=== PATIENT | female | born 1960 | race African-American/Black ===

== ENCOUNTER → 2018-02-14 12:26 | Outpatient (CLI) | payer OTHER, MEDICARE, SELFPAY ==
[2018-02-14 12:32] LABS: RBC Urine None Seen (0-5/HPF)
[2018-02-14 12:55] LABS: Appearance Urine UA CLEAR; Bilirubin Urine UA NEGATIVE (NEGATIVE); Color Urine UA YELLOW; Glucose Urine UA NEGATIVE (Normal); Ketones Urine UA NEGATIVE (NEGATIVE); Leukocyte Esterase Urine UA TRACE (NEGATIVE); Nitrite Urine UA Negative (Negative); Occult Blood Urine UA NEGATIVE (Negative); Protein Urine UA TRACE (Negative); pH Urine UA 6.5 (4.5-8.0)
[2018-02-14 13:01] LABS: Add Manual Diff / Slide Review NO; Basophils Percent Auto 0.6 % (0-2); Eosinophils Percent Auto 1.5 % (2-4); Hematocrit 33.2 % (36-46); Hemoglobin 10.9 g/dL (12.0-16.0); Lymphocytes Percent Auto 11.6 % (25-40); Mean Corpuscular HGB Conc 32.9 % (30-36); Mean Corpuscular Hemoglobin 27.4 PG (26-34); Mean Corpuscular Volume 83.3 fL (80-100); Monocytes Percent Auto 15.2 % (3-14); Neutrophils Absolute Auto 10300 /uL (3000-5900); Neutrophils Percent Auto 71.1 % (50-75); Platelet Count 560 X10^3/uL (150-400); Red Blood Cell Count 3.98 X10^6/uL (4.0-5.2); Red Cell Distribution Width 13.2 % (11.6-14.8); White Blood Cell Count 14.5 X10^3/uL (4.5-11.0)
[2018-02-14 13:13] LABS: Amorphous Sediment Urine 1+; Bacteria Urine Moderate (10-30); Culture Indicated Urine Specimen Cultured; Mucus Urine 1+ (Negative); Squamous Epithelial Cell Urine 1-5 /HPF; WBC Urine 5-10/HPF (0-5/HPF)
[2018-02-14 13:21] LABS: Alanine Aminotransferase 107 IU/L (9-52); Albumin 4.2 g/dL (3.5-5.0); Albumin Globulin Ratio 0.9 (1.0-2.8); Alkaline Phosphatase 119 U/L (38-126); Amylase 47 U/L (30-110); Aspartate Aminotransferase 53 IU/L (14-36); BUN Creatinine Ratio 14.3 (6-22); Bilirubin Total 1.1 mg/dL (0.2-1.3); Blood Urea Nitrogen 10 mg/dL (7-17); Calcium 11.1 mg/dL (8.4-10.2); Carbon Dioxide 28 mmol/L (22-32); Chloride 97 mmol/L (98-107); Estimated Glomerular Filt Rate > 60.0 mL/min (>60); Globulin 4.5 g/dL (1.7-4.1); Glucose 105 mg/dL (70-100); HEMOLYSIS < 15 (0-50); Lipase 22 U/L (23-300); Potassium 3.8 mmol/L (3.4-5.1); Sodium 136 mmol/L (137-145); Total Protein 8.7 g/dL (6.3-8.2)
[2018-02-14 14:36] LABS: Cholesterol 141 mg/dL (140-199); HDL Cholesterol 42 mg/dL (40-60); LDL Cholesterol Calculated 81 mg/dL (<100); Triglycerides 89 mg/dL (35-150)
[2018-02-14 15:08] LABS: Thyroid Stimulating Hormone 1.27 uIU/mL (0.47-4.68)
== END ==
PROVIDERS: PCP Family Medicine; Visit Provider Family Medicine
DX: G89.29 Other chronic pain (principal); M54.6 Pain in thoracic spine; E78.5 Hyperlipidemia, unspecified; I10 Essential (primary) hypertension
CPT/HCPCS: 36415; 80053; 80061; 81001; 82150; 83013; 83690; 84443; 85025; 87086

== ENCOUNTER → 2018-02-19 15:35 | Outpatient (CLI) | payer OTHER, MEDICARE, SELFPAY ==
[2018-02-22 09:14] LABS: Hepatitis A Antibody IgM NONREACTIVE; Hepatitis Acute Panel Interp 0.06; Hepatitis B Core Antibody IgM NONREACTIVE; Hepatitis B Surface Antigen NONREACTIVE; Hepatitis C Antibody NONREACTIVE
== END ==
PROVIDERS: PCP Family Medicine; Visit Provider Family Medicine
DX: R94.5 Abnormal results of liver function studies (principal)
CPT/HCPCS: 36415; 80074

== ENCOUNTER → 2018-03-12 13:17 | Outpatient (CLI) | payer OTHER, MEDICARE, SELFPAY ==
--- NOTE | 2018-03-12 13:19 | DI.US.S_ITS ---
PROCEDURE: US ABDOMEN COMPLETE INDICATIONS: Elevated LFT's TECHNIQUE: Real-time scanning was performed of the abdominal and retroperitoneal organs, with image documentation. COMPARISON: [facility], CT, ABDOMEN WITH CONTRAST, 03/15/2016, 9:30. FINDINGS: Liver: Liver is prominent in size and homogeneous in echotexture. Gallbladder: No findings of gallstones or sludge are seen. The gallbladder wall is not thickened, measuring 3 mm or less. No specific pericholecystic fluid is seen. The sonographic Welch sign is negative. Biliary ducts: Intrahepatic bile ducts are non-dilated. Extrahepatic bile duct caliber measures 6 mm. Normal is 6-7 mm or less in diameter, or 10 mm or less post-cholecystectomy. Pancreas: Visualized portions of the pancreas are sonographically normal. Spleen: Spleen is normal in size and homogeneous in echotexture. Kidneys: Kidneys are normal in size and echotexture. Right kidney measures 13 cm long; left kidney measures 14.8 cm long. No hydronephrosis or nephrolithiasis. No solid masses. Aorta: There is a proximal abdominal aortic aneurysm seen that measures up to 2.7 cm AP, with the transverse extent of 5.2 cm. There is a stent seen. Iliacs: Proximal common iliac arteries are normal in caliber at less than 2.5 cm. IVC: Intrahepatic inferior vena cava is patent. Miscellaneous: No free abdominal fluid. IMPRESSION: Abdominal aortic aneurysm, with stent graft. Prominent liver size. Dictated by: Laurent Newby M.D. on 03/12/2018 at 15:14 Approved by: Laurent Newby M.D. on 03/12/2018 at 15:16
== END ==
PROVIDERS: PCP Family Medicine; Visit Provider Family Medicine
DX: I71.4 Abdominal aortic aneurysm, without rupture (principal); R94.5 Abnormal results of liver function studies
CPT/HCPCS: 76700

== ENCOUNTER → 2018-07-03 10:56 | Outpatient (CLI) | payer OTHER, MEDICARE, SELFPAY ==
[2018-07-03 11:38] LABS: Add Manual Diff / Slide Review NO; Basophils Percent Auto 0.7 % (0-2); Eosinophils Percent Auto 2.1 % (2-4); Hematocrit 43.4 % (36-46); Hemoglobin 14.1 g/dL (12.0-16.0); Lymphocytes Percent Auto 20.3 % (25-40); Mean Corpuscular HGB Conc 32.4 % (30-36); Mean Corpuscular Hemoglobin 26.6 PG (26-34); Mean Corpuscular Volume 82.1 fL (80-100); Neutrophils Absolute Auto 6500 /uL (1500-7000); Neutrophils Percent Auto 63.9 % (50-75); Platelet Count 209 X10^3/uL (150-400); Red Blood Cell Count 5.28 X10^6/uL (4.0-5.2); Red Cell Distribution Width 16.1 % (11.6-14.8); White Blood Cell Count 10.2 X10^3/uL (4.5-11.0)
== END ==
PROVIDERS: PCP Family Medicine; Visit Provider Family Medicine
DX: D64.9 Anemia, unspecified (principal)
CPT/HCPCS: 36415; 85025

== ENCOUNTER → 2018-12-31 14:24 | Outpatient (CLI) | payer OTHER, MEDICARE, SELFPAY | PROVIDERS: PCP Family Medicine; Visit Provider Family Medicine | DX: N89.8 Other specified noninflammatory disorders of vagina (principal) | CPT/HCPCS: 87210 ==

== ENCOUNTER → 2019-02-14 14:39 | Outpatient (CLI) | payer OTHER, MEDICARE, SELFPAY ==
[2019-02-14 15:08] LABS: Add Manual Diff / Slide Review NO; Basophils Absolute Auto 100 /uL (0-100); Basophils Percent Auto 0.9 % (0-2); Eosinophils Absolute Auto 200 /uL (0-450); Eosinophils Percent Auto 1.9 % (2-4); Hematocrit 41.8 % (36-46); Lymphocytes Absolute Auto 2400 /uL (1100-4500); Lymphocytes Percent Auto 22.8 % (25-40); Mean Corpuscular HGB Conc 33.6 % (30-36); Mean Corpuscular Hemoglobin 28.1 PG (26-34); Mean Corpuscular Volume 83.6 fL (80-100); Monocytes Absolute Auto 1200 /uL (0-900); Monocytes Percent Auto 10.7 % (3-14); Neutrophils Absolute Auto 6800 /uL (1500-7000); Neutrophils Percent Auto 63.7 % (50-75); Platelet Count 189 X10^3/uL (150-400); Red Blood Cell Count 4.99 X10^6/uL (4.0-5.2); Red Cell Distribution Width 14.7 % (11.6-14.8); White Blood Cell Count 10.7 X10^3/uL (4.5-11.0)
[2019-02-14 15:21] LABS: Alanine Aminotransferase 19 IU/L (9-52); Albumin 4.7 g/dL (3.5-5.0); Albumin Globulin Ratio 1.3 (1.0-2.8); Alkaline Phosphatase 71 U/L (38-126); Aspartate Aminotransferase 32 IU/L (14-36); Bilirubin Total 0.9 mg/dL (0.2-1.3); Blood Urea Nitrogen 14 mg/dL (7-17); Carbon Dioxide 24 mmol/L (22-32); Chloride 105 mmol/L (98-107); Cholesterol 127 mg/dL (140-199); Estimated Glomerular Filt Rate > 60.0 mL/min (>60); Globulin 3.5 g/dL (1.7-4.1); Glucose 81 mg/dL (70-100); HDL Cholesterol 58 mg/dL (40-60); LDL Cholesterol Calculated 55 mg/dL (<100); Sodium 141 mmol/L (137-145); Total Protein 8.2 g/dL (6.3-8.2); Triglycerides 68 mg/dL (35-150)
[2019-02-14 15:22] LABS: HEMOLYSIS 95 (0-50); Potassium 5.4 mmol/L (3.4-5.1)
[2019-02-14 15:48] LABS: Thyroid Stimulating Hormone 0.84 uIU/mL (0.47-4.68)
[2019-02-14 16:03] LABS: Appearance Urine UA CLEAR; Bilirubin Urine UA NEGATIVE (NEGATIVE); Color Urine UA YELLOW; Glucose Urine UA NEGATIVE (Negative); Ketones Urine UA NEGATIVE (NEGATIVE); Leukocyte Esterase Urine UA NEGATIVE (NEGATIVE); Nitrite Urine UA NEGATIVE (Negative); Occult Blood Urine UA NEGATIVE (Negative); Protein Urine UA NEGATIVE (Negative); Specific Gravity Urine UA 1.015 (1.000-1.035); Urobilinogen Urine UA 0.2 E.U./dL (0.2)
== END ==
PROVIDERS: PCP Family Medicine; Visit Provider Family Medicine
DX: E66.9 Obesity, unspecified (principal); R74.8 Abnormal levels of other serum enzymes; Z13.220 Encounter for screening for lipoid disorders; Z13.29 Encounter for screening for other suspected endocrine disorder
CPT/HCPCS: 36415; 80053; 80061; 81003; 84443; 85025

== ENCOUNTER → 2019-04-16 13:17 | Outpatient (CLI) | payer OTHER, MEDICARE, SELFPAY ==
--- NOTE | 2019-04-16 | DI.US.S_ITS ---
ULTRASOUND OF LEFT BREAST: 04/16/2019 CLINICAL: Diffuse left breast pain. Comparison is made to exams dated: 04/16/2019 mammogram, 04/01/2015 mammogram, and 03/08/2005 mammogram - [facility]. Color flow and real-time ultrasound of the left breast were performed on the areas of interest. Yap scale images of the real-time examination were reviewed. There is an incidentally noted normal appearing lymph node in the left breast at 2 o'clock. IMPRESSION: BENIGN There is no sonographic evidence of malignancy. There is no mammographic or sonographic abnormality seen in the left breast to correspond with the pain in the upper outer quadrant, however, clinical followup is recommended. There is no mammographic or sonographic abnormality seen in the left breast to correspond with the intermittent nipple pruritis in the sub-areolar depth, however, paget's disease of the breast cannot be excluded, and surgical consult is recommended. A 1 year screening mammogram is recommended. This exam was interpreted at Station ID: [id number]. Electronically Signed By: Sheila cho/:04/16/2019 15:42:04 letter sent: Clinical Evaluation Ultrasound BI-RADS: 2 Benign
--- NOTE | 2019-04-16 13:22 | DI.MG.S_ITS ---
BILATERAL DIGITAL DIAGNOSTIC MAMMOGRAM 3D/2D: 04/16/2019 CLINICAL: Fibrocystic breast changes. Left breast pain. Left itchy nipple. Comparison is made to exams dated: 04/01/2015 mammogram and 03/08/2005 mammogram - [facility]. The tissue of both breasts is predominantly fatty. No significant masses, calcifications, or other findings are seen in either breast. IMPRESSION: INCOMPLETE: NEEDS ADDITIONAL IMAGING EVALUATION There is no mammographic abnormality seen in the left breast to correspond with the pain. There is no mammographic abnormality seen in the left breast to correspond with the intermittent nipple pruritis. A targeted ultrasound of the left breast is recommended and will be performed immediately following this exam. This exam was interpreted at Station ID: [id number]. NOTE: For mammograms, a report in lay terms will be sent to the patient. Approximately 15% of breast malignancies will not be visualized mammographically. In the management of a palpable breast mass, a negative mammogram must not discourage biopsy of a clinically suspicious lesion. Electronically Signed By: Sheila Gifford M.D. lk/:04/16/2019 14:12:28 ACR BI-RADS Category 0: Incomplete [id number]
== END ==
PROVIDERS: PCP Family Medicine; Visit Provider Family Medicine
DX: R92.8 Other abnormal and inconclusive findings on diagnostic imaging of breast (principal); N64.4 Mastodynia; L29.8 Other pruritus; N60.19 Diffuse cystic mastopathy of unspecified breast
CPT/HCPCS: 76642; 77066; G0279

== ENCOUNTER → 2019-04-25 14:55 | Outpatient (CLI) | payer OTHER, MEDICARE, SELFPAY ==
[2019-04-25 16:04] LABS: BUN Creatinine Ratio 22.9 (6-22); Blood Urea Nitrogen 16 mg/dL (7-17); Calcium 11.2 mg/dL (8.4-10.2); Carbon Dioxide 29 mmol/L (22-32); Chloride 103 mmol/L (98-107); Estimated Glomerular Filt Rate > 60.0 mL/min (>60); Glucose 77 mg/dL (70-100); HEMOLYSIS < 15 (0-50); Potassium 4.5 mmol/L (3.4-5.1); Sodium 141 mmol/L (137-145)
[2019-04-25 16:22] LABS: Vitamin D 25 Hydroxy (D3) < 12.8 ng/mL (30.0-100.0)
[2019-04-26 14:58] LABS: Alkaline Phosphatase 88 U/L (38-126); Phosphorous 3.1 mg/dL (2.5-4.5)
[2019-04-27 17:15] LABS: Parathyroid Hormone Int 126 pg/mL (14-64)
== END ==
PROVIDERS: PCP Student in an Organized Health Care Education/Training Program; Visit Provider Student in an Organized Health Care Education/Training Program
DX: E83.52 Hypercalcemia (principal); E87.5 Hyperkalemia; E55.9 Vitamin D deficiency, unspecified; E56.9 Vitamin deficiency, unspecified
CPT/HCPCS: 36415; 80048; 82306; 83516; 83970; 84075; 84100

== ENCOUNTER → 2020-04-10 13:57 | Outpatient (CLI) | payer OTHER, MEDICARE, SELFPAY ==
[2020-04-10 14:49] LABS: Add Manual Diff / Slide Review NO; Basophils Absolute Auto 100 /uL (0-100); Basophils Percent Auto 0.6 % (0-2); Eosinophils Absolute Auto 200 /uL (0-450); Eosinophils Percent Auto 1.5 % (2-4); Hematocrit 42.8 % (36-46); Hemoglobin 13.9 g/dL (12.0-16.0); Lymphocytes Absolute Auto 2400 /uL (1100-4500); Mean Corpuscular HGB Conc 32.6 % (30-36); Mean Corpuscular Hemoglobin 27.7 PG (26-34); Mean Corpuscular Volume 85.1 fL (80-100); Monocytes Absolute Auto 1200 /uL (0-900); Monocytes Percent Auto 11.7 % (3-14); Neutrophils Absolute Auto 6600 /uL (1500-7000); Neutrophils Percent Auto 63.2 % (50-75); Platelet Count 185 X10^3/uL (150-400); Red Blood Cell Count 5.03 X10^6/uL (4.0-5.2); Red Cell Distribution Width 14.4 % (11.6-14.8); White Blood Cell Count 10.4 X10^3/uL (4.5-11.0)
[2020-04-10 15:22] LABS: Alanine Aminotransferase 26 IU/L (<35); Albumin 4.6 g/dL (3.5-5.0); Albumin Globulin Ratio 1.4 (1.0-2.8); Alkaline Phosphatase 89 U/L (38-126); Aspartate Aminotransferase 35 IU/L (14-36); BUN Creatinine Ratio 15.7 (6-22); Bilirubin Total 0.6 mg/dL (0.2-1.3); Blood Urea Nitrogen 11 mg/dL (7-17); Carbon Dioxide 27 mmol/L (22-32); Chloride 103 mmol/L (98-107); Estimated Glomerular Filt Rate > 60.0 mL/min (>60); Gamma Glutamyl Transpeptidase 28 U/L (12-43); Globulin 3.2 g/dL (1.7-4.1); Glucose 97 mg/dL (70-100); HEMOLYSIS < 15 (0-50); Lipase 69 U/L (23-300); Potassium 4.5 mmol/L (3.4-5.1); Sodium 138 mmol/L (137-145); Total Protein 7.8 g/dL (6.3-8.2)
[2020-04-10 16:30] LABS: Vitamin D 25 Hydroxy (D3) 23.9 ng/mL (30.0-100.0)
[2020-04-12 07:49] LABS: Parathyroid Hormone Int 117 pg/mL (15-65)
== END ==
PROVIDERS: PCP Student in an Organized Health Care Education/Training Program; Referring Provider Student in an Organized Health Care Education/Training Program; Visit Provider Student in an Organized Health Care Education/Training Program
DX: E55.9 Vitamin D deficiency, unspecified (principal); N25.81 Secondary hyperparathyroidism of renal origin; R10.13 Epigastric pain
CPT/HCPCS: 36415; 80053; 82306; 82977; 83690; 83970; 85025

== ENCOUNTER → 2020-09-25 16:24 | Outpatient (CLI) | payer OTHER, MEDICARE, SELFPAY ==
[2020-09-25 17:02] LABS: COVID19 -Nasal RAPID Negative (Negative)
== END ==
PROVIDERS: PCP Student in an Organized Health Care Education/Training Program; Visit Provider Physician Assistant
DX: Z20.822 Contact with and (suspected) exposure to COVID-19 (principal)
CPT/HCPCS: 87635

== ENCOUNTER → 2021-07-26 10:10 | Outpatient (CLI) | payer MEDICARE, SELFPAY ==
[2021-07-26 12:11] LABS: Hematocrit 40.5 % (36-46); Hemoglobin 13.2 g/dL (12.0-16.0); Mean Corpuscular HGB Conc 32.5 % (30-36); Mean Corpuscular Hemoglobin 27.8 PG (26-34); Mean Corpuscular Volume 85.5 fL (80-100); Platelet Count 170 X10^3/uL (150-400); Red Blood Cell Count 4.74 X10^6/uL (4.0-5.2); Red Cell Distribution Width 14.3 % (11.6-14.8); White Blood Cell Count 7.9 X10^3/uL (4.5-11.0)
[2021-07-26 12:45] LABS: BUN Creatinine Ratio 14.7 (6-22); Blood Urea Nitrogen 10 mg/dL (7-17); Calcium 10.7 mg/dL (8.4-10.2); Carbon Dioxide 29 mmol/L (22-32); Chloride 108 mmol/L (98-107); Estimated Glomerular Filt Rate > 60.0 mL/min (>60); Glucose 93 mg/dL (70-100); HEMOLYSIS < 15 (0-50); Potassium 4.3 mmol/L (3.4-5.1); Sodium 140 mmol/L (137-145)
[2021-07-26 13:15] LABS: TSH w/ Reflex to FT4 1.26 uIU/mL (0.47-4.68)
[2021-07-26 13:35] LABS: Vitamin B12 362 pg/mL (239-931)
[2021-07-27 07:38] LABS: Parathyroid Hormone Int 124 pg/mL (15-65)
== END ==
PROVIDERS: PCP Student in an Organized Health Care Education/Training Program; Referring Provider Student in an Organized Health Care Education/Training Program; Visit Provider Student in an Organized Health Care Education/Training Program
DX: I71.01 Dissection of thoracic aorta (principal); I10 Essential (primary) hypertension; E55.9 Vitamin D deficiency, unspecified; F32.9 Major depressive disorder, single episode, unspecified; E66.01 Morbid (severe) obesity due to excess calories; N25.81 Secondary hyperparathyroidism of renal origin
CPT/HCPCS: 36415; 80048; 82306; 82607; 83970; 84443; 85027

== ENCOUNTER → 2021-11-01 11:43 | Outpatient (CLI) | payer MEDICARE, SELFPAY ==
[2021-11-01 12:59] LABS: Blood Urea Nitrogen 12 mg/dL (7-17); Calcium 10.5 mg/dL (8.4-10.2); Carbon Dioxide 29 mmol/L (22-32); Chloride 106 mmol/L (98-107); Estimated Glomerular Filt Rate > 60 mL/min (>60); Glucose 87 mg/dL (80-110); HEMOLYSIS < 15 (0-50); Potassium 4.3 mmol/L (3.4-5.1); Sodium 138 mmol/L (137-145)
[2021-11-01 14:02] LABS: Folate 17.4 ng/mL (2.76-20.0)
[2021-11-01 15:47] LABS: Vitamin D 25 Hydroxy (D3) 52.8 ng/mL (30.0-100.0)
[2021-11-02 07:36] LABS: Parathyroid Hormone Int 108 pg/mL (15-65)
== END ==
PROVIDERS: PCP Student in an Organized Health Care Education/Training Program; Referring Provider Student in an Organized Health Care Education/Training Program; Visit Provider Student in an Organized Health Care Education/Training Program
DX: N25.81 Secondary hyperparathyroidism of renal origin (principal); E55.9 Vitamin D deficiency, unspecified; F32.9 Major depressive disorder, single episode, unspecified; I10 Essential (primary) hypertension; R20.2 Paresthesia of skin
CPT/HCPCS: 36415; 80048; 82306; 82746; 83970

== ENCOUNTER → 2021-12-09 10:50 | Outpatient (CLI) | payer MEDICARE, OTHER, SELFPAY | PROVIDERS: PCP Student in an Organized Health Care Education/Training Program; Referring Provider Student in an Organized Health Care Education/Training Program; Visit Provider Student in an Organized Health Care Education/Training Program | DX: M85.851 Other specified disorders of bone density and structure, right thigh (principal); M85.852 Other specified disorders of bone density and structure, left thigh; Z13.820 Encounter for screening for osteoporosis; Z78.0 Asymptomatic menopausal state; E21.0 Primary hyperparathyroidism; I10 Essential (primary) hypertension | CPT/HCPCS: 77080 ==

== ENCOUNTER → 2022-01-14 11:19 | Outpatient (CLI) | payer MEDICARE, OTHER, SELFPAY ==
[2022-01-14 13:37] LABS: BUN Creatinine Ratio 19.4 (6-22); Blood Urea Nitrogen 12 mg/dL (7-17); Calcium 10.5 mg/dL (8.4-10.2); Carbon Dioxide 28 mmol/L (22-32); Chloride 104 mmol/L (98-107); Estimated Glomerular Filt Rate > 60 mL/min (>60); Glucose 111 mg/dL (80-110); HEMOLYSIS < 15 (0-50); Potassium 4.8 mmol/L (3.4-5.1); Sodium 139 mmol/L (137-145)
== END ==
PROVIDERS: PCP Student in an Organized Health Care Education/Training Program; Referring Provider Student in an Organized Health Care Education/Training Program; Visit Provider Student in an Organized Health Care Education/Training Program
DX: Z01.818 Encounter for other preprocedural examination (principal)
CPT/HCPCS: 36415; 80048

== ENCOUNTER → 2022-01-17 10:34 | Outpatient (CLI) | payer MEDICARE, OTHER, SELFPAY ==
--- NOTE | 2022-01-17 | DI.CT.S_ITS ---
PROCEDURE: CT ANGIO CHEST ABDOMEN PELVIS INDICATIONS: Thoracoabdominal aortic aneurysm, without rupture TECHNIQUE: Precontrast 5 mm thick sections acquired from the lung apices to the iliac crests. After the administration of intravenous contrast, 2.5 mm thick sections again acquired from the lung apices to the iliac crests. Maximum intensity projection (MIP) oblique sagittal and coronal reformats were then acquired. For radiation dose reduction, the following was used: automated exposure control. COMPARISON: [facility], CT, ANGIO CHEST ABDOMEN PELVIS, 05/29/2017, 14:39 FINDINGS: Image quality: Excellent. AORTA: Since the prior CT on 05/29/2017 the patient has undergone stenting of the descending thoracic aorta which begins just distal to the subclavian artery and extends to the aortic hiatus at the level of the diaphragm. In the thoracic aorta there is faint contrast in the aneurysmal sac at the level of T10 likely type 2 endoleak. The aneurysmal sac at this level measures 7.1 x 4.9 cm compared to 6.0 x 4.4 cm on the previous CT in 2017. The abdominal aorta demonstrates dissection with contrast in both the true and false lumen. The right renal artery and SMA branch from the true lumen. There is a dissection in the proximal SMA which does not appear to cause any limitation of flow. The celiac trunk and left renal artery branch from the false lumen. The aneurysm continues into the left common iliac artery which is aneurysmally dilated measuring 4.0 x 4.6 cm, unchanged compared to 05/29/2017. The right and left common iliac arteries are tortuous. Maximal axial diameter of the abdominal aorta is 4.4 cm at the level of the SMA, larger compared to the prior CT when it measured 3.6 cm at this level. There is also aneurysmal dilatation of the infrarenal aorta measuring 4.0 cm at the level of L3, larger compared to the prior CT when it measured 3.2 cm. Mural thrombus in the false lumen specifically at the level of the SMA and above the bifurcation has increased. CHEST: Lungs and pleura: No acute airspace opacities. No pleural effusions or pneumothorax. Central and peripheral airways are patent and normal in caliber. Mediastinum: Heart size is normal. No pericardial effusion. No mediastinal or hilar adenopathy by size criteria. Central pulmonary arteries are normal in size. Esophagus is normal in caliber. No hiatal hernias. Bones and chest wall: No axillary adenopathy by size criteria. Thyroid gland is normal. No suspicious bony lesions. No vertebral body compression fractures. ABDOMEN: Vasculature: Celiac trunk has a mild stenosis. The SMA and THERESA are patent. The right renal artery is patent from the true lumen, the left renal artery is patent from the false lumen. Solid organs: Liver is normal in size and enhancement. Gallbladder is normal. Biliary system is non dilated. Pancreas enhances normally. Spleen is normal in size and enhancement. No adrenal nodules. Both kidneys are normal in size and enhancement, without hydronephrosis. Peritoneum and bowel: No free fluid or air. Bowel loops are normal in caliber and wall thickness. Nodes and vessels: No retroperitoneal or mesenteric adenopathy by size criteria. Inferior vena cava is normal in morphology. Miscellaneous: There is rectus diastasis with stool and bowel in the anterior abdomen. PELVIS: Genitourinary: Bladder wall thickness is normal. The uterus has a globular appearance on CT suggesting fibroids, unchanged compared to the prior CT in 2017. Miscellaneous: No inguinal hernias or adenopathy. No ventral hernias. Bones: No suspicious bony lesions. No vertebral body compression fractures. IMPRESSION: 1. [place] B aortic dissection, now status post endo graft placement. 2. There is contrast in the aneurysmal sac at the level of T10, likely a type 2 endoleak with the aneurysmal sac at this level measuring 7.1 x 4.9 cm compared to 6.0 x 4.4 cm in 2017. 3. Dissection in the abdominal aorta similar to the prior except for increased mural thrombus; maximal axial diameter of the abdominal aorta is 4.4 cm compared to 3.6 cm in 2017. Dictated by: Ryan Elizabeth M.D. on 01/17/2022 at 12:04 Approved by: Ryan Elizabeth M.D. on 01/17/2022 at 12:32
== END ==
PROVIDERS: PCP Student in an Organized Health Care Education/Training Program; Referring Provider Student in an Organized Health Care Education/Training Program; Visit Provider Student in an Organized Health Care Education/Training Program
DX: I71.02 Dissection of abdominal aorta (principal); I71.6 Thoracoabdominal aortic aneurysm, without rupture; Z95.828 Presence of other vascular implants and grafts
CPT/HCPCS: 71275; 74174; Q9967

== ENCOUNTER → 2022-02-25 12:03 | Outpatient (CLI) | payer MEDICARE, OTHER, SELFPAY ==
--- NOTE | 2022-02-25 12:05 | DI.US.S_ITS ---
PROCEDURE: US SOFT TISSUE HEAD AND NECK INDICATIONS: Soft tissue swelling of the neck TECHNIQUE: Real-time scanning was performed of the neck region of interest, with image documentation. COMPARISON: None. FINDINGS: At the area of interest, there is a subcutaneous edema and a large hypoechoic nodule measuring 3.2 x 1.7 x 3.3 cm without documented internal vascularity. Additional lymph nodes present. There is a level 2 node adjacent to the submandibular gland measuring 2.8 x 1.2 x 0.9 cm, level 4 node measuring 1.8 x 0.6 x 0.7 cm, and several smaller subcentimeter nodes inferiorly. IMPRESSION: Hypoechoic solid mass lesion with surrounding subcutaneous edema measures 3.3 cm. Further evaluation with contrast CT neck advised. Approved by: Addy Castro M.D. on 02/25/2022 at 13:32
== END ==
PROVIDERS: PCP Student in an Organized Health Care Education/Training Program; Referring Provider Student in an Organized Health Care Education/Training Program; Visit Provider Student in an Organized Health Care Education/Training Program
DX: R22.1 Localized swelling, mass and lump, neck (principal); M79.89 Other specified soft tissue disorders
CPT/HCPCS: 76536

== ENCOUNTER → 2022-03-07 11:25 | Outpatient (CLI) | payer MEDICARE, OTHER, SELFPAY ==
[2022-03-07 13:04] LABS: Add Manual Diff / Slide Review NO; Basophils Absolute Auto 100 /uL (0-100); Basophils Percent Auto 0.8 % (0-2); Eosinophils Absolute Auto 200 /uL (0-450); Eosinophils Percent Auto 2.5 % (2-4); Hematocrit 40.8 % (36-46); Hemoglobin 13.7 g/dL (12.0-16.0); Lymphocytes Absolute Auto 2400 /uL (1100-4500); Lymphocytes Percent Auto 23.8 % (25-40); Mean Corpuscular HGB Conc 33.7 % (30-36); Mean Corpuscular Hemoglobin 28.4 PG (26-34); Mean Corpuscular Volume 84.1 fL (80-100); Monocytes Absolute Auto 1100 /uL (0-900); Monocytes Percent Auto 11.4 % (3-14); Neutrophils Absolute Auto 6100 /uL (1500-7000); Neutrophils Percent Auto 61.5 % (50-75); Platelet Count 187 X10^3/uL (150-400); Red Blood Cell Count 4.85 X10^6/uL (4.0-5.2); Red Cell Distribution Width 14.4 % (11.6-14.8)
[2022-03-07 14:12] LABS: BUN Creatinine Ratio 17.9 (6-22); Blood Urea Nitrogen 14 mg/dL (7-17); Estimated Glomerular Filt Rate > 60 mL/min (>60)
== END ==
PROVIDERS: PCP Student in an Organized Health Care Education/Training Program; Referring Provider Student in an Organized Health Care Education/Training Program; Visit Provider Student in an Organized Health Care Education/Training Program
DX: R22.9 Localized swelling, mass and lump, unspecified (principal); N14.1 Nephropathy induced by other drugs, medicaments and biological substances; T50.8X5A Adverse effect of diagnostic agents, initial encounter
CPT/HCPCS: 36415; 82565; 84520; 85025

== ENCOUNTER → 2022-03-10 10:29 | Outpatient (CLI) | payer MEDICARE, OTHER, SELFPAY ==
--- NOTE | 2022-03-10 10:31 | DI.CT.S_ITS ---
PROCEDURE: CT SOFT TISSUE NECK W CON INDICATIONS: Re-evaluate soft tissue swelling TECHNIQUE: After the administration of intravenous contrast, 3.0 mm axial sections acquired from the sella to the aortic arch. Additional oblique axial 3.0 mm sections acquired through the pharynx. 3 mm thick coronal and sagittal reformats were generated. For radiation dose reduction, the following was used: automated exposure control. COMPARISON: [facility], US, US SOFT TISSUE HEAD AND NECK, 02/25/2022, 12:18. [facility], CT, CT ANGIO CHEST ABDOMEN PELVIS, 01/17/2022, 10:46. FINDINGS: Image quality: Excellent. Lymph nodes: No enlarged lymph nodes seen throughout the neck. Vessels: Visualized vasculature appears patent. A thoracic aortic arch stent is partially seen, with chronic appearing thrombus involving the descending thoracic aorta. Neck spaces: The oropharynx, nasopharynx, and pharynx demonstrate no mucosal lesions. The vocal cords, false vocal cords, pyriform sinuses, epiglottis, vallecula, and tongue base all appear normal. Extramucosal spaces appear unremarkable. Glands: Within the right parotid gland, there is a cystic appearing lesion that measures up to 2.7 cm craniocaudal. The right parotid gland appears swollen compared to the left. The submandibular glands appear normal. Thyroid gland demonstrates no significant abnormality. Miscellaneous: Visualized brain and orbits appear normal. Lung apices appear clear. Superficial soft tissues appear normal. Bones: No suspicious bony lesions. Visualized sinuses and mastoids appear unremarkable. IMPRESSION: There is a cystic appearing lesion seen within the right parotid gland, with mild rim enhancement. Please consider percutaneous ultrasound-guided sampling, if clinically appropriate. No enlarged lymph nodes are seen. Thoracic aortic stent partially seen. Dictated by: Laurent Newby M.D. on 03/10/2022 at 10:18 Approved by: Laurent Newby M.D. on 03/10/2022 at 10:21
== END ==
PROVIDERS: PCP Student in an Organized Health Care Education/Training Program; Referring Provider Student in an Organized Health Care Education/Training Program; Visit Provider Student in an Organized Health Care Education/Training Program
DX: K11.9 Disease of salivary gland, unspecified (principal); R22.1 Localized swelling, mass and lump, neck; M79.89 Other specified soft tissue disorders
CPT/HCPCS: 70491; Q9967

== ENCOUNTER → 2022-08-02 11:20 | Outpatient (CLI) | payer OTHER, SELFPAY ==
--- NOTE | 2022-08-02 11:21 | DI.RAD.S_ITS ---
PROCEDURE: XR WRIST LT 2V INDICATIONS: Wrist pain w/o injury TECHNIQUE: 2 views of the wrist were acquired. COMPARISON: [facility], CR, XR WRIST RT 2V, 08/02/2022, 11:22. FINDINGS: Bones: No fractures or dislocations. No suspicious bony lesions. Mild 1st CMC joint and triscaphe joint osteoarthritis. There is widening of the scapholunate interval concerning for scapholunate ligament tear. Soft tissues: No suspicious soft tissue calcifications. IMPRESSION: Widening of the scapholunate interval concerning for scapholunate ligament tear. Recommend MRI of the left wrist for additional evaluation. Osteoarthritis. Dictated by: Gianna Rodríguez MD, PhD on 08/02/2022 at 13:56 Approved by: Gianna Rodríguez MD, PhD on 08/02/2022 at 13:58
--- NOTE | 2022-08-02 11:21 | DI.RAD.S_ITS ---
PROCEDURE: XR WRIST RT 2V INDICATIONS: Wrist pain w/o injury TECHNIQUE: To views of the wrist were acquired. COMPARISON: None. FINDINGS: Bones: No fractures or dislocations. No suspicious bony lesions. Severe 1st CMC joint osteoarthritis. Soft tissues: No suspicious soft tissue calcifications. IMPRESSION: Severe 1st CMC joint osteoarthritis. Dictated by: Gianna Rodríguez MD, PhD on 08/02/2022 at 13:56 Approved by: Gianna Rodríguez MD, PhD on 08/02/2022 at 13:56
== END ==
PROVIDERS: PCP Student in an Organized Health Care Education/Training Program; Referring Provider Student in an Organized Health Care Education/Training Program; Visit Provider Student in an Organized Health Care Education/Training Program
DX: M18.0 Bilateral primary osteoarthritis of first carpometacarpal joints (principal); M19.032 Primary osteoarthritis, left wrist; M25.531 Pain in right wrist; M25.532 Pain in left wrist
CPT/HCPCS: 73100

== ENCOUNTER → 2023-12-14 11:32 | Outpatient (CLI) | payer OTHER, SELFPAY ==
--- NOTE | 2023-12-14 | DI.CT.S_ITS ---
PROCEDURE: CT ANGIO CHEST ABDOMEN PELVIS INDICATIONS: Thoracoabdominal aortic aneurysm, without rupture, unspecifi TECHNIQUE: Precontrast 5 mm thick sections acquired from the lung apices to the iliac crests. After the administration of intravenous contrast, 2.5 mm thick sections again acquired from the lung apices to the iliac crests. Maximum intensity projection (MIP) oblique sagittal and coronal reformats were then acquired. For radiation dose reduction, the following was used: automated exposure control. COMPARISON: [facility], CT, CT ANGIO CHEST ABDOMEN PELVIS, 01/17/2022, 10:46. FINDINGS: Image quality: Diagnostic. AORTA and its attachments: Mild aneurysmal dilatation of the ascending aorta, measuring 4.2 cm. Remote thoracic aortic endovascular repair of a [place] B dissection, with stent graft placement immediately distal to the origin of the left subclavian artery. Question endoleak into the excluded thoracic aneurysm sac versus somewhat laminated calcifications resulting in increased density. Suspect that this does in fact represent an endoleak. There is continued increase in the size of the aneurysmal dilatation of the dissected aorta. For instance, at the level of T7, at the level of the inferior left pulmonary vein, the sac has increased in size from 4.7 x 4.4 cm to 5.2 x 5.2 cm. Reference previous image 84/4 and current image 84/5. Another example of increased diameter is previous image 111/4 and current image 113/5 where the diameter of the aneurysm has increased from 4.8 cm to 5.8 cm in diameter. Both the celiac and the SMA appear to arise off both the true and false lumens. There is dissection again noted involving the proximal SMA. The left renal artery arises off of the false lumen and the right renal artery arises off the true lumen. The THERESA appears to arise off of the false lumen. A dissected aneurysmal segment of the abdominal aorta at the level of the inferior mesenteric artery is increased in size. On previous image 178 it measured 4.0 x 3.5 cm. It now measures 4.7 x 4.2 cm. 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 This aneurysmally dilated segment has also increased in diameter. On previous image 210 it measured 4.6 x 4.8 cm. On current image 212 it measures 4.7 x 5.2 cm. CHEST: Lower Neck: No enlarged lymph nodes. Thyroid: No thyroid nodules which require sonographic evaluation. Axillae: No enlarged lymph nodes. Chest Wall: Unremarkable. Lungs and Pleura: No pneumothorax or pleural effusions. No consolidation or suspicious nodules. Heart: Heart size is normal. No pericardial effusion. Thoracic Vessels: Pulmonary arteries demonstrate normal size. Mediastinum and Peace: No enlarged lymph nodes. Esophagus: No wall thickening. No hiatal hernia. ABDOMEN: Liver: No solid mass. Gallbladder: No radiopaque gallstones or wall thickening. Biliary ducts: No biliary dilation. Pancreas: No ductal dilation. Spleen: Size is within normal limits. Adrenal Glands: No adrenal nodules. Kidneys and Ureters: No hydronephrosis. No solid mass. No complex renal cystic lesion which requires follow up. Stomach and Bowel: Normal colonic caliber, without significant wall thickening. Peritoneum: No abnormal intraperitoneal fluid. No free air. Ventral Wall: No hernia. Abdominal Nodes: No retroperitoneal or mesenteric adenopathy by size criteria. Vessels: Inferior vena cava is normal in size. PELVIS: Pelvic Organs: Enlarged fibroid uterus again noted.. Bladder: Unremarkable. Pelvic Nodes: No enlarged lymph nodes. Miscellaneous: No inguinal hernias are seen. Bones: Lumbar degenerative change. No lytic or blastic bony lesions. No compression fractures. Severe canal stenosis at L3-L4. IMPRESSION: 1. Mild aneurysmal dilatation of the ascending aorta. 2. 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 There is presumed to be a type 2 endoleak present. However, no non-contrast images and no delayed images were obtained through the aorta. 3. 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 4. Again noted is dissection involving the proximal SMA. 5. Fibroid uterus. 6. Severe canal stenosis at L3-L4. Comment: Consider returning for noncontrast CT through the aorta. This would determine whether not there is endoleak. Recommend consultation with the treating endovascular surgeon regarding increasing size of the dissected aneurysms Dictated by: Karel Walsh M.D. on 12/14/2023 at 13:46 Approved by: Karel Walsh M.D. on 12/14/2023 at 14:23
[2023-12-14 12:06] LABS: Estimated Glomerular Filt Rate > 60 mL/min (>60)
[2023-12-14 14:13] LABS: TSH w/ Reflex to FT4 1.24 uIU/mL (0.47-4.68)
[2023-12-14 16:47] LABS: Vitamin D 25 Hydroxy (D3) 26.1 ng/mL (30.0-100.0)
== END ==
LOC: CT 11:33
PROVIDERS: Radiology Diagnostic Radiology; PCP Family Medicine; Referring Provider Family Medicine; Visit Provider Family Medicine
DX: I71.21 Aneurysm of the ascending aorta, without rupture (principal); I71.02 Dissection of abdominal aorta; Z01.812 Encounter for preprocedural laboratory examination; I77.72 Dissection of iliac artery; I71.019 Dissection of thoracic aorta, unspecified; I77.77 Dissection of artery of lower extremity; I71.60 Thoracoabdominal aortic aneurysm, without rupture, unspecified; D25.9 Leiomyoma of uterus, unspecified; E21.0 Primary hyperparathyroidism; R53.1 Weakness; R23.2 Flushing; E66.01 Morbid (severe) obesity due to excess calories; G47.33 Obstructive sleep apnea (adult) (pediatric); E78.2 Mixed hyperlipidemia; I10 Essential (primary) hypertension; M48.061 Spinal stenosis, lumbar region without neurogenic claudication; Z86.39 Personal history of other endocrine, nutritional and metabolic disease
CPT/HCPCS: 36415; 71275; 74174; 82306; 82565; 84443; Q9967

== ENCOUNTER → 2024-09-05 13:01 | Outpatient (CLI) | payer OTHER, SELFPAY ==
--- NOTE | 2024-09-05 13:04 | DI.CT.S_ITS ---
PROCEDURE: CT ANGIO CHEST ABDOMEN PELVIS INDICATIONS: Thoracoabdominal aortic aneurysm TECHNIQUE: Precontrast 5 mm thick sections acquired from the lung apices to the iliac crests. After the administration of intravenous contrast, 2.5 mm thick sections again acquired from the lung apices to the iliac crests. Maximum intensity projection (MIP) oblique sagittal and coronal reformats were then acquired. For radiation dose reduction, the following was used: automated exposure control. COMPARISON: [facility], CT, CT ANGIO CHEST ABDOMEN PELVIS, 12/14/2023, 12:41. FINDINGS: Image quality: Diagnostic. AORTA: Ascending aorta is not dilated. It measures 3.8 cm. Again noted is a treated [place] B dissection with an endovascular thoracic aortic stent. The false lumen is excluded by the endograft until the distal aspect of the endograft which does not fully oppose the lai of the aorta. There is minimal retrograde flow into the false lumen which is largely thrombosed. There is continued increase in size of the aneurysm involving the dissected descending thoracic aorta. For instance, on previous image 114 of series 5, the transverse diameter of the descending thoracic aorta was 5.4 cm. On current image 98 of series 5 it measures 5.6 cm. On previous image 119 of series 5, the transverse diameter of the descending thoracic aorta was 5.2 cm. On current image 102 of series 5, the transverse diameter is 5.7 cm. Celiac and SMA are off of both the true and false lumens with dissection extending into both of these vessels. Right renal arteries off the true lumen. Left renal artery is off the false lumen. THERESA is off the false lumen. At the level of the origin of the THERESA on previous image 181 of series 5, the aorta measured 4.1 x 3.7 cm. On current image 173 of series 5 it measures 4.5 x 3.9 cm. The left common iliac artery has significantly increased in size. It is involved by dissection. On previous image 209 of series 5 it measured 4.8 x 5.1 cm. On the same level, current image 109 of series 5, it now measures 5.1 x 5.5 cm. CHEST: Lower Neck: No enlarged lymph nodes. Thyroid: No thyroid nodules which require sonographic evaluation. Axillae: No enlarged lymph nodes. Chest Wall: Unremarkable. Lungs and Pleura: No pneumothorax or pleural effusions. No consolidation or suspicious nodules. Heart: Unchanged cardiomegaly. There is four-chamber enlargement, most notably the left atrium. No pericardial effusion. Thoracic Vessels: Left main pulmonary artery measures 3.2 cm. This may potentially indicate a degree of pulmonary arterial hypertension. Mediastinum and Peace: No enlarged lymph nodes. Esophagus: No wall thickening. No hiatal hernia. ABDOMEN: Liver: No solid mass. Gallbladder: No radiopaque gallstones or wall thickening. Biliary ducts: No biliary dilation. Pancreas: No ductal dilation. Spleen: Size is within normal limits. Adrenal Glands: No adrenal nodules. Kidneys and Ureters: No hydronephrosis. No solid mass. No complex renal cystic lesion which requires follow up. Stomach and Bowel: Normal colonic caliber, without significant wall thickening. Peritoneum: No abnormal intraperitoneal fluid. No free air. Ventral Wall: No hernia. Abdominal Nodes: No retroperitoneal or mesenteric adenopathy by size criteria. Vessels: Inferior vena cava is normal in size. PELVIS: Pelvic Organs: Fibroid uterus. No adnexal masses.. Bladder: Unremarkable. Pelvic Nodes: No enlarged lymph nodes. Miscellaneous: No inguinal hernias are seen. Bones: Lumbar degenerative change. Severe canal stenosis at L3-L4. IMPRESSION: 1. The ascending aorta is non aneurysmal. 2. Chronic treated Ilia B dissection arising after the left subclavian artery takeoff. The descending thoracic aortic dissection is treated with an endograft. There is retrograde flowing of the false lumen which is largely thrombosed in the thoracic region at the very end of the stented portion. 3. Significant continued increase in the size of the descending thoracic aorta, which has been treated with an endovascular graft. For instance, at the distal aspect, previously measured 5.2 cm and now measures 5.7 cm. 4. Dissection involves both the SMA and the celiac. It also involves the left common iliac artery. 5. Continued interval growth of the size of the abdominal aortic dissected aneurysm. For instance, at the level of the THERESA is has increased from 4.1 cm to 4.5 cm. 6. Definite significant interval increase in the size of the dissected left common iliac artery. It previously measured 4.8 x 5.1 cm and now measures 5.1 x 5.5 cm. 7. Cardiomegaly. 8. Question pulmonary arterial hypertension. 9. Severe lumbar canal stenosis. Dictated by: Karel Walsh M.D. on 09/05/2024 at 20:24 Approved by: Karel Walsh M.D. on 09/05/2024 at 20:45
[2024-09-05 13:37] LABS: Add Manual Diff / Slide Review NO; Basophils Absolute Auto 100 /uL (0-100); Basophils Percent Auto 0.8 % (0-2); Eosinophils Absolute Auto 200 /uL (0-450); Eosinophils Percent Auto 2.7 % (2-4); Hematocrit 40.6 % (36-46); Hemoglobin 13.5 g/dL (12.0-16.0); Lymphocytes Absolute Auto 1800 /uL (1100-4500); Lymphocytes Percent Auto 22.4 % (25-40); Mean Corpuscular HGB Conc 33.2 % (30-36); Mean Corpuscular Hemoglobin 28.6 PG (26-34); Monocytes Absolute Auto 800 /uL (0-900); Monocytes Percent Auto 9.5 % (3-14); Neutrophils Absolute Auto 5100 /uL (1500-7000); Neutrophils Percent Auto 64.6 % (50-75); Platelet Count 183 X10^3/uL (150-400); Red Blood Cell Count 4.72 X10^6/uL (4.0-5.2); Red Cell Distribution Width 15.5 % (11.6-14.8)
[2024-09-05 13:38] LABS: Estimated Glomerular Filt Rate > 60 mL/min (>60)
[2024-09-05 13:42] LABS: Hemoglobin A1C% w Est Avg Glu 5.5 % (4.0-6.0)
[2024-09-05 13:56] LABS: Alanine Aminotransferase 26 IU/L (<35); Albumin 4.7 g/dL (3.5-5.0); Albumin Globulin Ratio 1.6 (1.0-2.8); Alkaline Phosphatase 89 U/L (38-126); Aspartate Aminotransferase 35 IU/L (14-36); BUN Creatinine Ratio 18.8 (6-22); Bilirubin Total 0.6 mg/dL (0.2-1.3); Blood Urea Nitrogen 13 mg/dL (7-17); Calcium 10.9 mg/dL (8.4-10.2); Carbon Dioxide 27 mmol/L (22-32); Chloride 104 mmol/L (98-107); Cholesterol 141 mg/dL (140-199); Estimated Glomerular Filt Rate > 60 mL/min (>60); Globulin 2.9 g/dL (1.7-4.1); Glucose 92 mg/dL (80-110); HDL Cholesterol 69 mg/dL (40-60); HEMOLYSIS 17 (0-50); LDL Cholesterol Calculated 59 mg/dL (<100); Potassium 4.8 mmol/L (3.4-5.1); Sodium 138 mmol/L (137-145); Total Protein 7.6 g/dL (6.3-8.2); Triglycerides 63 mg/dL (35-150)
[2024-09-05 14:26] LABS: TSH w/ Reflex to FT4 1.33 uIU/mL (0.47-4.68)
[2024-09-06 08:12] LABS: Calcium 10.7 mg/dL (8.7-10.3); Parathyroid Hormone, Intact 141 pg/mL (15-65)
== END ==
LOC: CT 13:03
PROVIDERS: Radiology Diagnostic Radiology; PCP Family Medicine; Referring Provider Family Medicine; Visit Provider Family Medicine
DX: I71.40 Abdominal aortic aneurysm, without rupture, unspecified (principal); E78.2 Mixed hyperlipidemia; E21.0 Primary hyperparathyroidism; Z72.0 Tobacco use; I10 Essential (primary) hypertension; I71.010 Dissection of ascending aorta; I71.019 Dissection of thoracic aorta, unspecified; I51.7 Cardiomegaly; M48.061 Spinal stenosis, lumbar region without neurogenic claudication; Z95.828 Presence of other vascular implants and grafts
CPT/HCPCS: 71275; 74174; 80053; 80061; 82310; 82565; 82652; 83036; 83970; 84443; 85025; Q9967

== ENCOUNTER → 2024-09-09 13:38 | Outpatient (CLI) | payer OTHER, SELFPAY ==
--- NOTE | 2024-09-09 13:39 | DI.RAD.S_ITS ---
PROCEDURE: XR DEXA AXIAL SKELETON INDICATIONS: Osteoporosis screening COMPARISON: [facility], ISAIAH, XR DEXA AXIAL SKELETON, 12/09/2021, 11:47. FINDINGS: Lumbar Spine (L1, L2, L4): Bone mineral density 1.183 g/cm2, T score 1.4. No comparison made to the previous study. Left Femoral Neck: Bone mineral density 0.733 g/cm2, T score -1.0. Left Hip: Bone mineral density 0.832 g/cm2, T score -0.9, unchanged from the previous study. Fracture Risk Calculation (when applicable): Not valid in patient with normal bone mineralization. Only valid in patients with osteopenia (T score greater or equal to -1.0 to: NORMAL) (T score from -1.1 to -2.4: OSTEOPENIA) (T score less than or equal to -2.5: OSTEOPOROSIS) IMPRESSION: 1. By WHO (World Health Organization) criteria, this patient has normal bone density 2. Fracture Risk Calculation is not utilized in patients with normal bone density 3. Since the most recent prior study, there has been no significant change in the bone mineral density of the total left hip. 4. Recommend consider repeat DEXA study in 2-5 years. Follow-up guidelines as follows: Osteoporosis: Consider a repeat DEXA and Vertebral Fracture Assessment (VFA) exam in 2 years or sooner if medically necessary, to reassess this patient's status. Osteopenia: Consider a repeat DEXA in 2-3 years to reassess this patient's status, or if there is a new clinical indication. Normal: Consider a repeat DEXA in 5 years or sooner, or if there is a new clinical indication. All treatment decisions require clinical judgment and consideration of individual patient factors, including patient preferences, comorbidities, previous drug use, risk factors not captured in the FRAX model (e.g., frailty, falls, vitamin D deficiency, increased bone turnover, interval significant decline in bone density ) and possible under- or over-estimation of fracture risk by FRAX. In addition, the NOF Guide recommends that FDA-approved medical therapies be considered in postmenopausal women and men age >= 50 years with a: * Hip or vertebral (clinical or morphometric) fracture * T-score of <=-2.5 at the spine or hip * Ten-year fracture probability by FRAX of >= 3% for hip fracture or >=20% for major osteoporotic fracture. Dictated by: Karel Walsh M.D. on 09/09/2024 at 18:09 Approved by: Karel Walsh M.D. on 09/09/2024 at 18:13
--- NOTE | 2024-09-09 13:39 | DI.MG.S_ITS ---
MM screening mammo BI: 09/09/2024. BI-RADS: 1 CLINICAL: 63-year old female for bilateral screening mammogram. Tyrer-Cuzick lifetime risk of 9.8%. No personal or first-degree family history of breast cancer. Current reported family history of breast cancer: paternal grandmother. History of ovarian cancer in one first-degree relative. PRIOR EXAMS 04/16/2019, 07/06/2015, 04/01/2015. MAMMOGRAPHY TECHNIQUE: 2D and 3D (tomosynthesis) digital mammographic views obtained, with additional images as needed for full coverage. Current study was also evaluated with a Computer Aided Detection (CAD) system. DENSITY B. There are scattered areas of fibroglandular density. MAMMOGRAPHY FINDINGS Bilateral: No suspicious mass, asymmetry, microcalcification, or other abnormality seen. No significant change from comparison. IMPRESSION: * No evidence of malignancy. RECOMMENDATIONS Bilateral * Annual screening mammography. OVERALL ASSESSMENT CATEGORY BI-RADS-1: Negative. The [employer] recommends annual screening mammography beginning at age 40 for women with average risk of breast cancer. ELECTRONICALLY SIGNED: Janice Cavanaugh M.D. on 09/09/2024 at 06:13:20 PM PT Interpreting Station ID: [id number]
== END ==
PROVIDERS: PCP Family Medicine; Referring Provider Family Medicine; Visit Provider Family Medicine
DX: Z12.31 Encounter for screening mammogram for malignant neoplasm of breast (principal); Z80.3 Family history of malignant neoplasm of breast; Z80.41 Family history of malignant neoplasm of ovary; M85.89 Other specified disorders of bone density and structure, multiple sites; Z78.0 Asymptomatic menopausal state
CPT/HCPCS: 77063; 77067; 77080